=== PATIENT | female | born 1975 | race Caucasian/White ===

== ENCOUNTER 2018-07-27 09:33 | Emergency (ER) | payer SELFPAY ==
[~2018-07-27] VITALS: Ht 154.9 cm; Wt 71.8 kg
[2018-07-27 09:36] VITALS: Ht 154.9 cm; Wt 71.8 kg
[2018-07-27 09:58] LABS: microscopic required? YES; urine erythrocyte 3+ (NEGATIVE)
[2018-07-27 11:13] VITALS: BP 140/80
== END 2018-07-27 11:13 | disposition home or self-care (01) ==
LOC: ED 09:33
DX: J03.90 Acute tonsillitis, unspecified (principal); R51 Headache; Z88.6 Allergy status to analgesic agent; Z88.8 Allergy status to other drugs, medicaments and biological substances
CPT/HCPCS: J2270